=== PATIENT | female | born 1985 | race Caucasian/White ===

== ENCOUNTER 2016-07-01 23:02 | Emergency (ER) | payer SELFPAY ==
[~2016-07-01] VITALS: Ht 157.5 cm; Wt 61.2 kg
[2016-07-01 23:11] VITALS: BP 120/85
--- NOTE | 2016-07-01 23:36 | PHYS DOC ---
Past Medical History Past Medical History: No Pertinent History Past Surgical History: Tubal ligation, Other Additional Past Surgical Histo: PARTIAL HYSTERECTOMY,TUMOR REMOVED FROM VAGINAL WALL Alcohol Use: None Drug Use: None Adult General Chief Complaint Chief Complaint: NAUSEA/VOMITING/DIARRHA HPI HPI Patient is a 31 year old female presents emergency department stating that she' s had a week and half or she's been vomiting with every meal. She states that on the most part she's been keeping fluids down. She denies fever, chills she denies any diarrhea. She states that she has lower abdominal pain and discomfort. She denies urinary frequency urgency pain with urination. She denies any vaginal discharge. Patient states that she's had a partial hysterectomy in the past. Review of Systems Review of Systems Constitutional: Denies fever or chills [] Eyes: Denies change in visual acuity, redness, or eye pain [] HENT: Denies nasal congestion or sore throat [] Respiratory: Denies cough or shortness of breath [] Cardiovascular: No additional information not addressed in HPI [] GI: abdominal pain, nausea, vomiting, denies bloody stools or diarrhea [] : Denies dysuria or hematuria [] Musculoskeletal: Denies back pain or joint pain [] Integument: Denies rash or skin lesions [] Neurologic: Denies headache, focal weakness or sensory changes [] Endocrine: Denies polyuria or polydipsia [] Current Medications Current Medications Current Medications Medications (Trade) Dose Ordered Sig/Messi Start Time Stop Time Status Last Admin Dose Admin Ondansetron HCl (Zofran) 4 mg 1X ONCE 07/02/16 00:00 07/02/16 00:01 Sodium Chloride 1,000 ml @ 1,000 mls/hr 1X ONCE 07/02/16 00:00 07/02/16 00:59 Allergies Allergies Allergies Coded Allergies Type Severity Reaction Last Updated Verified Penicillins Allergy Intermediate SWELLING 07/01/16 Yes Physical Exam Physical Exam Constitutional: Well developed, well nourished, no acute distress, non-toxic appearance. [] HENT: Normocephalic, atraumatic, bilateral external ears normal, oropharynx moist, no oral exudates, nose normal. [] Eyes: PERRLA, EOMI, conjunctiva normal, no discharge. [] Neck: Normal range of motion, no tenderness, supple, no stridor. [] Cardiovascular:Heart rate regular rhythm, no murmur [] Lungs & Thorax: Bilateral breath sounds clear to auscultation [] Abdomen: Bowel sounds hypoactive, soft, no tenderness, no masses, no pulsatile masses. [] Skin: Warm, dry, no erythema, no rash. [] Back: No tenderness Extremities: No tenderness, no cyanosis, no clubbing, ROM intact, no edema. [] Neurologic: Alert and oriented X 3, normal motor function, normal sensory function, no focal deficits noted. [] Psychologic: Affect normal, judgement normal, mood normal. [] Current Patient Data Vital Signs Vital Signs Date Time Temp Pulse Resp B/P (MAP) Pulse Ox O2 Delivery O2 Flow Rate FiO2 07/01/16 23:11 98.1 103 18 100 Room Air 98.1 Lab Values Laboratory Tests Test 07/01/16 22:40 07/01/16 23:10 POC Urine HCG, Qualitative Hcg negative (Negative) Urine Collection Type Unknown Urine Color Yellow Urine Clarity Clear Urine pH 7.0 Urine Specific [place] <=1.005 Urine Protein Negative mg/dL (NEG-TRACE) Urine Glucose (UA) Negative mg/dL (NEG) Urine Ketones (Stick) Negative mg/dL (NEG) Urine Blood Negative (NEG) Urine Nitrite Negative (NEG) Urine Bilirubin Negative (NEG) Urine Urobilinogen Dipstick 0.2 mg/dL (0.2 mg/dL) Urine Leukocyte Esterase Trace (NEG) Urine RBC 0 /HPF (0-2) Urine WBC Occ /HPF (0-4) Urine Squamous Epithelial Cells Few /LPF Urine Bacteria Mod /HPF (0-FEW) EKG EKG [] Radiology/Procedures Radiology/Procedures [] 0230 CT scan reveals no acute abdominal or pelvic abnormality. There is moderate: Stool volume. Sigmoid colon diverticulosis without evidence of diverticulitis. Patient's labs were all within normal limits. Patient's CBC chemistry and UA were unremarkable. Patient's currently resting in bed watching TV in no acute distress. Patient reports that she does feel better. Patient be discharged home with a prescription with ibuprofen and instructed to follow-up with her primary care doctor. I discussed with the patient the issue of diverticulosis and the need to change her diet to high-fiber diet Abdominal exam: Soft nondistended no rebound or guarding. No evidence of a surgical abdomen at this time. Course & Med Decision Making Course & Med Decision Making Pertinent Labs and Imaging studies reviewed. (See chart for details) Patient was moved to Room 23 for further care after [employer] [employer] assessment [address] Ansari, Labs pending at current time with CT scan pending. Urine was positive for trace lueks. [] Dragon Disclaimer Dragon Disclaimer This electronic medical record was generated, in whole or in part, using a voice recognition dictation system. Departure Departure Impression: Primary Impression: Abdominal pain Additional Impression: Diverticulosis Disposition: HOME, SELF-CARE Condition: IMPROVED Referrals: NO PCP (PCP) Patient Instructions: Abdominal Pain (Nonspecific), Diverticulosis Scripts Ibuprofen (IBUPROFEN) 600 Mg Tablet 600 MG PO PRN Q6HRS Y for PAIN, #20 TAB Prov: BRI ANSARI MD 07/02/16 Problem Qualifiers Primary Impression: Abdominal pain Abdominal location: left lower quadrant Qualified Codes: R10.32 - Left lower quadrant pain Additional Impression: Diverticulosis Diverticulosis site: diverticulosis of large intestine Diverticulosis bleeding: diverticulosis without bleeding Qualified Codes: K57.30 - Diverticulosis of large intestine without perforation or abscess without bleeding STUART THOMPSON APRN July 01, 2016 23:35 BRI ANSARI MD July 02, 2016 02:32
[2016-07-01 23:39] LABS: BILIRUBIN,URINE NEGATIVE (NEG); GLUCOSE,URINE NEGATIVE (NEG); NITRITE,URINE NEGATIVE (NEG); PROTEIN,URINE NEGATIVE (NEG-TRACE); UROBILINOGEN,URINE 0.2 mg/dL (0.2 mg/dL)
[2016-07-01 23:45] LABS: BACTERIA,URINE MOD /HPF (0-FEW); RBC,URINE 0 /HPF (0-2); SQUAMOUS EPITHELIAL CELL,UR FEW /LPF; WBC,URINE OCC /HPF (0-4)
[2016-07-02] MEDS ORDERED: ONDANSETRON PF 4 MG/2 ML VIAL. IV ONE
[2016-07-02] MEDS ORDERED: IV NORMAL SALINE 1000ML BAG 1,000 ML IV ONE
[2016-07-02] MEDS ORDERED: IOHEXOL 300 MG/ML 75 ML VIAL IV ONE ×2 (00:45→01:30)
[2016-07-02] MEDS ORDERED: IOHEXOL 240 MG/ML 50ML VIAL. PO ONE (00:45)
[2016-07-02] MEDS ORDERED: IOHEXOL 240 MG/ML 50ML VIAL. IV ONE (01:30)
[2016-07-02 02:05] LABS: ALBUMIN 3.4 g/dL (3.4-5.0); ALBUMIN/GLOBULIN RATIO 0.9 (1.0-1.7); CALCIUM 8.8 mg/dL (8.5-10.1); CREATININE 0.7 mg/dL (0.6-1.0); GFR 98.9; TOTAL BILIRUBIN 0.2 mg/dL (0.2-1.0); TOTAL PROTEIN 7.3 g/dL (6.4-8.2)
[2016-07-02 02:09] LABS: BASO # 0.2 x10^3/uL (0.0-0.2); BASO % 1 % (0-3); EOS % 3 % (0-3); HEMATOCRIT 40.6 % (36.0-47.0); HEMOGLOBIN 13.8 g/dL (12.0-15.5); LYMPH # 3.9 x10^3/uL (1.0-4.8); LYMPH % 36 % (24-48); MEAN CORPUSCULAR HEMOGLOBIN 30 pg (25-35); MEAN CORPUSCULAR HGB CONC 34 g/dL (31-37); MEAN CORPUSCULAR VOLUME 90 fL (79-100); MONO % 8 % (0-9); NEUT % 52 % (31-73); PLATELET COUNT 299 x10^3/uL (140-400); RED BLOOD COUNT 4.53 x10^6/uL (3.50-5.40); RED CELL DISTRIBUTION WIDTH 12.7 % (11.5-14.5); WHITE BLOOD COUNT 10.7 x10^3/uL (4.0-11.0)
[2016-07-02] MEDS ORDERED: IBUP-1007 PO (02:31)
--- NOTE | 2016-07-02 09:41 | RAD ---
PROCEDURE CT abdomen pelvis with contrast. HISTORY Lower abdominal pain and vomiting. TECHNIQUE Helical CT imaging of the abdomen and pelvis performed after oral contrast and 75 cc Omnipaque 300 IV contrast. PQRS: One or more the following individualized dose reduction techniques were utilized for the study: 1. Automated exposure control. 2. Adjustment of the mA and/or kV according to patient size. 3. Use of iterative reconstruction technique. COMPARISON None. FINDINGS The lung bases are clear. Cardiac size normal. Cholecystectomy. The liver, spleen, pancreas, adrenal glands, abdominal aorta, and kidneys are normal. There is right extrarenal pelvis. Stomach unremarkable. No dilated small bowel. The appendix is normal. There is moderate colon stool volume. No colon wall thickening is seen. There is diverticulosis in the sigmoid colon. No abdominal adenopathy or free fluid. The urinary bladder is normal. Uterus atrophic or surgically absent. Left ovary unremarkable. Right ovary not definitely seen. No pelvic free fluid. No acute bone abnormality. IMPRESSION 1. No acute abdominal or pelvic abnormality. 2. Moderate colon stool volume. 3. Sigmoid colon diverticulosis without evidence of diverticulitis. Electronically signed by: Davion Kapoor MD (July 02, 2016 02:02:48)
== END 2016-07-02 02:45 | disposition home or self-care (01) ==
LOC: ER 23:02
DX: R10.32 Left lower quadrant pain (principal); K57.30 Diverticulosis of large intestine without perforation or abscess without bleeding; Z98.51 Tubal ligation status; Z88.0 Allergy status to penicillin
CPT/HCPCS: 36415; 74177; 80053; 81001; 82150; 83690; 84703; 85027; 96361; 96374; 99285; J2405; J7030; Q9967; 81025

== ENCOUNTER 2017-09-25 00:01 | Emergency (ER) | payer SELFPAY | END 2017-09-25 00:40 | disposition home or self-care (01) | LOC: ER 00:01 | DX: K04.7 Periapical abscess without sinus (principal); K02.9 Dental caries, unspecified; Z90.710 Acquired absence of both cervix and uterus; Z98.51 Tubal ligation status; Z98.890 Other specified postprocedural states; Z88.0 Allergy status to penicillin | CPT/HCPCS: 99283 ==

== ENCOUNTER 2020-01-06 12:59 | Emergency (ER) | payer SELFPAY ==
[~2020-01-06] VITALS: Ht 157.5 cm; Wt 77.2 kg
[~2020-01-06 12:59] MED LIST: CLIN300C8 PO; IBUP-1007 PO; TRAM50TA PO
[2020-01-06 13:38] VITALS: BP 127/82
--- NOTE | 2020-01-06 13:49 | PHYS DOC ---
Past Medical History Past Medical History: No Pertinent History Additional Past Medical Histor: PCOS Past Surgical History: Cholecystectomy, Hysterectomy, Other Additional Past Surgical Histo: VAGINAL Smoking Status: Never Smoker Alcohol Use: None Drug Use: None General Adult EDM: Chief Complaint: Congestion HPI: HPI: Patient is a 34 year old female who presents to the ED today complaining of nasal congestion that began yesterday and loss of taste or smell that began today. Patient works at the [employer], she states 2 employees tested positive for COVID-19 and she was instructed to come to the ED to be tested. Denies any fever, Review of Systems: Review of Systems: Constitutional: Denies fever or chills. [] Eyes: Denies change in visual acuity. [] HENT: Reports nasal congestion and loss of taste and smell, denies sore throat. [] Respiratory: Denies cough or shortness of breath. [] Cardiovascular: Denies chest pain or edema. [] GI: Denies abdominal pain, nausea, vomiting, bloody stools or diarrhea. [] : Denies dysuria. [] Musculoskeletal: Denies back pain or joint pain. [] Integument: Denies rash. [] Neurologic: Denies headache, focal weakness or sensory changes. [] Psychiatric: Denies depression or anxiety. [] Heart Score: Risk Factors: Risk Factors: DM, Current or recent (<one month) smoker, HTN, HLP, family history of CAD, obesity. Risk Scores: Score 0 - 3: 2.5% MACE over next 6 weeks - Discharge Home Score 4 - 6: 20.3% MACE over next 6 weeks - Admit for Clinical Observation Score 7 - 10: 72.7% MACE over next 6 weeks - Early Invasive Strategies Allergies: Allergies: Allergies Coded Allergies Type Severity Reaction Last Updated Verified Penicillins Allergy Intermediate SWELLING 07/01/16 Yes Physical Exam: PE: Constitutional: Well developed, well nourished, no acute distress, non-toxic appearance. [] HENT: Normocephalic, atraumatic, bilateral external ears normal, oropharynx moist, no oral exudates, nose normal. [] Eyes: PERRLA, EOMI, conjunctiva normal, no discharge. [] Neck: Normal range of motion, no tenderness, supple, no stridor. [] Cardiovascular:Heart rate regular rhythm, no murmur [] Lungs & Thorax: Bilateral breath sounds clear to auscultation [] Abdomen: Bowel sounds normal, soft, no tenderness, no masses, no pulsatile masses. [] Skin: Warm, dry, no erythema, no rash. [] Back: No tenderness, no CVA tenderness. [] Extremities: No tenderness, no cyanosis, no clubbing, ROM intact, no edema. [] Neurologic: Alert and oriented X 3, normal motor function, normal sensory func tion, no focal deficits noted. [] Psychologic: Affect normal, judgement normal, mood normal. [] Current Patient Data: Vital Signs: Vital Signs Date Time Temp Pulse Resp B/P (MAP) Pulse Ox O2 Delivery O2 Flow Rate FiO2 01/06/20 13:38 99.1 94 20 127/82 (97) 97 Room Air 99.1 EKG: EKG: [] Radiology/Procedures: Radiology/Procedures: [] Course & Med Decision Making: Course & Med Decision Making Pertinent Labs and Imaging studies reviewed. (See chart for details) This is a 34-year-old female patient presenting to the ED today complaining of nasal congestion, loss of taste and smell, symptoms began yesterday. Was sent to the ED for COVID-19 test which was done. Follow-up with PCP. Supportive care measures recommended including the need for good hand hygiene, rest, pushing fluids. Dragon Disclaimer: Dragon Disclaimer: This electronic medical record was generated, in whole or in part, using a voice recognition dictation system. Departure Departure Impression: Primary Impression: Person under investigation for COVID-19 Additional Impression: URI (upper respiratory infection) Qualified Codes: J06.9 - Acute upper respiratory infection, unspecified Disposition: 01 DC HOME SELF CARE/HOMELESS Condition: STABLE Referrals: NO PCP (PCP) follow up in one week with your doctor Patient Instructions: Upper Respiratory Infection, Adult, [id number] Additional Instructions: You were tested for COVID-19, we will call you in the course of next week with results. Quarantine yourself until you hear from us. Maintain good hand hygiene. Push fluids. Wear your mask. MAMTA JOAQUIN APRN Jan 06, 2020 13:49
--- NOTE | 2020-01-08 08:50 | NUR ---
IP: Attempted to call COVID test results. No answer. No means to leave a voicemail.
== END 2020-01-06 13:38 | disposition home or self-care (01) ==
LOC: ER 12:59
DX: U07.1 COVID-19 (principal); J06.9 Acute upper respiratory infection, unspecified
CPT/HCPCS: 99283; C9803; U0003

== ENCOUNTER 2020-06-03 23:37 | Emergency (ER) | payer SELFPAY ==
[~2020-06-03] VITALS: Ht 157.5 cm; Wt 81.1 kg
[~2020-06-03 23:37] MED LIST changes: -CLIN300C8 PO; +CLIN300C9 PO
[2020-06-03 23:45] VITALS: BP 111/78
[2020-06-04 00:36] LABS: BILIRUBIN,URINE NEGATIVE (NEG); CLARITY,URINE CLEAR; COLOR,URINE YELLOW; NITRITE,URINE NEGATIVE (NEG); PH,URINE 6.5 (<5.0-8.0); PROTEIN,URINE NEGATIVE (NEG-TRACE)
[2020-06-04 00:41] LABS: BACTERIA,URINE MODERATE /HPF (0-FEW); RBC,URINE OCC /HPF (0-2); WBC,URINE OCC /HPF (0-4)
--- NOTE | 2020-06-04 00:45 | PHYS DOC ---
Past Medical History Past Medical History: No Pertinent History, Diverticulitis Additional Past Medical Histor: PCOS Past Surgical History: Cholecystectomy, Hysterectomy, Other Additional Past Surgical Histo: VAGINAL Smoking Status: Current Every Day Smoker (1/2 pack per day) Alcohol Use: None Drug Use: None General Adult EDM: Chief Complaint: GI PROBLEM HPI: HPI: Patient is a 35 year old female presents the emergency department with abdominal pain. Patient states that she had pork chop, macaroni and cheese, fried potatoes for dinner and 45 minutes after eating she acutely developed an 8 out of 10 sharp cramping pain in her epigastric region and right upper quadrant of her abdomen. Patient denies radiation of pain to the back. Lying flat exacerbates this pain and patient said that putting pressure on these regions alleviates pain. Deep breaths also exacerbate the pain. Patient did not take any medication to alleviate symptoms. Patient has past medical history significant for diverticulitis and gallstones requiring cholecystectomy, she claims that this pain is very similar to both. Patient had a partial hysterectomy in 2011. Patient denies any fever, chills, nausea, vomiting, diarrhea, constipation. Review of Systems: Review of Systems: Constitutional: Denies fever or chills Eyes: Denies redness or eye pain HENT: Denies nasal congestion or sore throat Respiratory: Denies cough or shortness of breath Cardiovascular: Denies chest pain or palpitations GI: Complains of abdominal pain in the right upper quadrant and epigastric region, denies: diarrhea, nausea, vomiting : Denies dysuria or hematuria Musculoskeletal: Denies back pain or joint pain Integument: Denies rash or skin lesions Neurologic: Denies headache, focal weakness or sensory changes Complete systems were reviewed and found to be within normal limits, except as documented in this note. Heart Score: C/O Chest Pain: N/A Family History: Family History: No relevant family history Current Medications: Current Medications Medications (Trade) Dose Ordered Sig/Messi Start Time Stop Time Status Last Admin Dose Admin Famotidine (Pepcid Vial) 20 mg 1X ONCE 06/04/20 00:30 06/04/20 00:31 UNV Ketorolac Tromethamine (Toradol 15mg Vial) 15 mg 1X ONCE 06/04/20 00:30 06/04/20 00:31 UNV Ondansetron HCl (Zofran) 4 mg 1X ONCE 06/04/20 00:30 06/04/20 00:31 UNV Sodium Chloride 1,000 ml @ 1,000 mls/hr Q1H 06/04/20 00:30 06/04/20 01:29 UNV Allergies: Allergies: Allergies Coded Allergies Type Severity Reaction Last Updated Verified Penicillins Allergy Intermediate SWELLING 07/01/16 Yes Physical Exam: PE: Constitutional: Well developed, well nourished, patient is in obvious pain- curled up in position HENT: Normocephalic, atraumatic Eyes: PERRL, EOMI, conjunctiva normal, no discharge Neck: Normal range of motion, no tenderness, supple Lungs & Thorax: No respiratory distress, equal chest rise and fall Abdomen: Pain to palpation in epigastric region and right upper quadrant region, no rebound, negative McBurney's Skin: Warm, dry, no erythema, no rash Back: No tenderness, no CVA tenderness Extremities: No tenderness, ROM intact, no edema Neurologic: Alert and oriented X 3, normal motor function, normal sensory function, no focal deficits noted Psychologic: Affect normal, judgment normal Current Patient Data: Labs: Laboratory Tests Test 06/04/20 00:06 POC Urine HCG, Qualitative Hcg negative (Negative) Vital Signs: Vital Signs Date Time Temp Pulse Resp B/P (MAP) Pulse Ox O2 Delivery O2 Flow Rate FiO2 06/03/20 23:45 97.5 86 20 111/78 (89) 98 Room Air 97.5 EKG: EKG: [] Radiology/Procedures: Radiology/Procedures: PROCEDURE: CT ABD PELV W/ IV CONTRST ONLY CT SCAN OF THE ABDOMEN AND PELVIS WITH IV CONTRAST. History: Reason: upper abdominal pain / Spl. Instructions: / History: Comparison:July 02, 2016. Procedure: Contiguous axial images of the abdomen and pelvis were performed after the administration of 75 cc of Isovue 370 IV contrast. Oral contrast: No. Findings: There has been prior cholecystectomy. The appendix is normal. The uterus is not well seen and could be small or surgically removed. There is a 3.1 cm cyst in the right adnexa which was not seen previously. There is mild distention of multiple loops of large and small bowel. Liver: Unremarkable Spleen: Unremarkable Pancreas: Unremarkable Adrenal Glands: Unremarkable Kidneys: Mild prominence the renal pelvises was seen previously is likely extrarenal pelvis There is no mass or lymphadenopathy. There is no free air. There is no free fluid. The urinary bladder appears normal. Impression: 1. Mild ileus. 2. Right adnexal cyst is likely of ovarian origin. This is small likely benign. Recommend a 2-3 month follow-up ultrasound of the pelvis. End impression PQRS Compliance Statement: One or more of the following individualized dose reduction techniques were utilized for this examination: 1. Automated exposure control 2. Adjustment of the mA and/or kV according to patient size 3. Use of iterative reconstruction technique Electronically signed by: Griffin Beebe III, MD (06/04/2020 2:13 AM) [facility] Course & Med Decision Making: Course & Med Decision Making 35-year-old female presents the emergency department for abdominal pain. Patient had pork chops, macaroni cheese, fried potatoes in the evening and 45 minutes later had 8 out of 10 sharp constant epigastric and right upper quadrant abdominal pain. She denies fever, nausea, vomiting, chills, diarrhea, constipation. Patient has past medical history of gallstones and diverti culitis, with past surgical history of partial hysterectomy and cholecystectomy. Labs were drawn, medications for pain and nausea given, Pepcid given. CT of abdomen and pelvis performed Dragon Disclaimer: DragRibbon Disclaimer: This electronic medical record was generated, in whole or in part, using a voice recognition dictation system. Departure Departure Impression: Primary Impression: Abdominal pain Qualified Codes: R10.13 - Epigastric pain Additional Impressions: Ileus Nausea Disposition: 01 HOME / SELF CARE / HOMELESS Condition: STABLE Referrals: NO PCP (PCP) SOUMYA SPRINGER MD Patient Instructions: Abdominal Pain (Nonspecific), Clear Liquid Diet, [id number], Ileus, Nausea, Adult, [id number] Additional Instructions: Increase fluid hydration. Keep diet bland after tolerating a clear liquid diet. Scripts Hyoscyamine Sulfate (LEVSIN-SL) 0.125 Mg Tab.subl 0.125 MG SL Q4-6HRS PRN for PAIN, #14 TAB Prov: MANOHAR DOTY DO 06/04/20 Famotidine (PEPCID) 20 Mg Tablet 20 MG PO BID, #14 TAB Prov: MANOHAR DOTY DO 06/04/20 Ondansetron (ONDANSETRON ODT) 4 Mg Tab.rapdis 1 TAB PO PRN Q6-8HRS PRN for NAUSEA, #16 TAB Prov: MANOHAR DOTY DO 06/04/20 MANOHAR DOTY DO Jun 04, 2020 00:44
[2020-06-04] MEDS ORDERED: IV NORMAL SALINE 1000ML BAG 1,000 ML IV SCH (01:00)
[2020-06-04] MEDS ORDERED: FAMOTIDINE 20 MG/2 ML VIAL IVP ONE (01:00)
[2020-06-04] MEDS ORDERED: KETOROLAC 15 MG/ML VIAL. IVP ONE (01:00)
[2020-06-04] MEDS ORDERED: ONDANSETRON PF 4 MG/2 ML VIAL. IVP ONE (01:00)
[2020-06-04 01:19] LABS: BASO # 0.1 x10^3/uL (0.0-0.2); BASO % 1 % (0-3); EOS # 0.2 x10^3/uL (0.0-0.7); EOS % 2 % (0-3); HEMATOCRIT 41.4 % (36.0-47.0); HEMOGLOBIN 14.3 g/dL (12.0-15.5); LYMPH # 3.2 x10^3/uL (1.0-4.8); LYMPH % 30 % (24-48); MEAN CORPUSCULAR HEMOGLOBIN 31 pg (25-35); MEAN CORPUSCULAR HGB CONC 35 g/dL (31-37); MEAN CORPUSCULAR VOLUME 91 fL (79-100); MONO # 0.7 x10^3/uL (0.0-1.1); MONO % 7 % (0-9); NEUT # 6.5 x10^3/uL (1.8-7.7); NEUT % 60 % (31-73); PLATELET COUNT 274 x10^3/uL (140-400); RED BLOOD COUNT 4.56 x10^6/uL (3.50-5.40); RED CELL DISTRIBUTION WIDTH 12.4 % (11.5-14.5); WHITE BLOOD COUNT 10.8 x10^3/uL (4.0-11.0)
[2020-06-04 01:33] LABS: CALCIUM 8.9 mg/dL (8.5-10.1); CREATININE 0.8 mg/dL (0.6-1.0); GFR 82.6; POTASSIUM 3.8 mmol/L (3.5-5.1)
[2020-06-04 01:37] LABS: ALBUMIN 3.7 g/dL (3.4-5.0); MAGNESIUM 1.9 mg/dL (1.8-2.4); TOTAL BILIRUBIN 0.2 mg/dL (0.2-1.0); TOTAL PROTEIN 7.5 g/dL (6.4-8.2)
[2020-06-04] MEDS ORDERED: CONTRAST GIVEN. MC PRN (02:00)
[2020-06-04] MEDS ORDERED: IOHEXOL 300 MG/ML 100ML VIAL. IV ONE (02:00)
--- NOTE | 2020-06-04 02:15 | RAD ---
CT SCAN OF THE ABDOMEN AND PELVIS WITH IV CONTRAST. History: Reason: upper abdominal pain / Spl. Instructions: / History: Comparison:July 02, 2016. Procedure: Contiguous axial images of the abdomen and pelvis were performed after the administration of 75 cc o f Isovue 370 IV contrast. Oral contrast: No. Findings: There has been prior cholecystectomy. The appendix is normal. The uterus is not well seen and could b e small or surgically removed. There is a 3.1 cm cyst in the right adnexa which was not seen previous ly. There is mild distention of multiple loops of large and small bowel. Liver: Unremarkable Spleen: Unremarkable Pancreas: Unremarkable Adrenal Glands: Unremarkable Kidneys: Mild prominence the renal pelvises was seen previously is likely extrarenal pelvis There is no mass or lymphadenopathy. There is no free air. There is no free fluid. The urinary bladder appears normal. Impression: 1. Mild ileus. 2. Right adnexal cyst is likely of ovarian origin. This is small likely benign. Recommend a 2-3 month follow-up ultrasound of the pelvis. End impression PQRS Compliance Statement: One or more of the following individualized dose reduction techniques were utilized for this examinat ion: 1. Automated exposure control 2. Adjustment of the mA and/or kV according to patient size 3. Use of iterative reconstruction technique Electronically signed by: Griffin Beebe III, MD (06/04/2020 2:13 AM) [facility]
[2020-06-04] MEDS ORDERED: HYOS0.1265 SL (03:28)
[2020-06-04] MEDS ORDERED: FAMO-63 PO (03:28)
[2020-06-04] MEDS ORDERED: ONDA4TAB12 PO (03:28)
[2020-06-04] MEDS ORDERED: fentaNYL PF VIAL 100 MCG/2 ML VIAL IV ONE (03:30)
== END 2020-06-04 04:06 | disposition home or self-care (01) ==
LOC: ER 23:37
DX: K56.7 Ileus, unspecified (principal); R10.13 Epigastric pain; R11.0 Nausea; F17.200 Nicotine dependence, unspecified, uncomplicated; Z90.49 Acquired absence of other specified parts of digestive tract; Z90.710 Acquired absence of both cervix and uterus; Z98.890 Other specified postprocedural states; Z88.0 Allergy status to penicillin
CPT/HCPCS: 36415; 74177; 80053; 81001; 81025; 83690; 83735; 85025; 87086; 96361; 96374; 96375; 99285; J1885; J2405; J3010; J3490; J7030; Q9967

== ENCOUNTER 2020-06-21 19:51 | Emergency (ER) | payer SELFPAY ==
[~2020-06-21] VITALS: Ht 157.5 cm; Wt 82.0 kg
[~2020-06-21 19:51] MED LIST changes: +FAMO-63 PO; +HYOS0.1265 SL; +ONDA4TAB12 PO
[2020-06-21 20:12] LABS: BILIRUBIN,URINE NEGATIVE (NEG); CLARITY,URINE CLEAR; COLOR,URINE YELLOW; NITRITE,URINE POSITIVE (NEG); PROTEIN,URINE NEGATIVE (NEG-TRACE); UROBILINOGEN,URINE 0.2 mg/dL (0.2 mg/dL)
[2020-06-21] MEDS ORDERED: ONDANSETRON PF 4 MG/2 ML VIAL. IVP ONE (20:15)
[2020-06-21] MEDS ORDERED: IV NORMAL SALINE 1000ML BAG 1,000 ML IV ONE (20:15)
[2020-06-21] MEDS ORDERED: MECLIZINE HCL 12.5 MG TABLET. PO ONE (20:15)
[2020-06-21] MEDS ORDERED: fentaNYL PF VIAL 100 MCG/2 ML VIAL IVP ONE (20:15)
[2020-06-21 20:25] LABS: BACTERIA,URINE MANY /HPF (0-FEW)
[2020-06-21 20:26] LABS: RBC,URINE 0 /HPF (0-2)
[2020-06-21 20:37] LABS: BASO # 0.1 x10^3/uL (0.0-0.2); BASO % 1 % (0-3); EOS # 0.3 x10^3/uL (0.0-0.7); EOS % 3 % (0-3); HEMATOCRIT 39.9 % (36.0-47.0); HEMOGLOBIN 13.6 g/dL (12.0-15.5); LYMPH % 36 % (24-48); MEAN CORPUSCULAR HEMOGLOBIN 31 pg (25-35); MEAN CORPUSCULAR HGB CONC 34 g/dL (31-37); MEAN CORPUSCULAR VOLUME 90 fL (79-100); MONO # 0.6 x10^3/uL (0.0-1.1); MONO % 6 % (0-9); NEUT % 54 % (31-73); PLATELET COUNT 261 x10^3/uL (140-400); RED BLOOD COUNT 4.43 x10^6/uL (3.50-5.40); RED CELL DISTRIBUTION WIDTH 12.8 % (11.5-14.5); WHITE BLOOD COUNT 11.1 x10^3/uL (4.0-11.0)
[2020-06-21 20:45] LABS: CALCIUM 8.5 mg/dL (8.5-10.1); CREATININE 0.9 mg/dL (0.6-1.0); GFR 72.1; POTASSIUM 3.8 mmol/L (3.5-5.1); PROTHROMBIN TIME PATIENT 12.9 SEC (11.7-14.0)
[2020-06-21 20:51] LABS: ALBUMIN 3.9 g/dL (3.4-5.0); ALBUMIN/GLOBULIN RATIO 1.2 (1.0-1.7); TOTAL BILIRUBIN 0.3 mg/dL (0.2-1.0); TOTAL PROTEIN 7.1 g/dL (6.4-8.2)
[2020-06-21] MEDS ORDERED: CIPROFLOXACIN 400MG PREMIX 200 ML IV ONE (21:00)
--- NOTE | 2020-06-21 21:17 | PHYS DOC ---
Past Medical History Past Medical History: Diverticulitis Additional Past Medical Histor: PCOS, Ileus Past Surgical History: Cholecystectomy, Hysterectomy, Other Additional Past Surgical Histo: VAGINAL Smoking Status: Current Every Day Smoker Alcohol Use: None Drug Use: None General Adult EDM: Chief Complaint: DIZZY/LIGHT HEADED HPI: HPI: Patient is a 35 year old female who presents with dizziness, headache behind her eyes, nausea and states that her fingers are turning purple. Patient rates her pain a 7 out of 10 and states she has a throbbing headache. She states she had a headache earlier took Tylenol and got better. She states it did came back but she was eating dinner tonight. She states she has been eating and drinking appropriately. She has not vomited. On June 04 she was diagnosed with a mild ileus. Patient has a history of mild ileus, cholecystectomy, diverticulitis, PCOS, smoker, hysterectomy. Patient denies chest pain, shortness of air, syncope, abdominal pain, fever, urinary symptoms, back pain, focal weakness, numbness or tingling. Review of Systems: Review of Systems: Constitutional: Denies fever or chills. [] Eyes: Denies change in visual acuity. [] HENT: Denies nasal congestion or sore throat. [] Respiratory: Denies cough or shortness of breath. [] Cardiovascular: Denies chest pain or edema. [] GI: Denies abdominal pain, +nausea, denies vomiting, bloody stools or diarrhea. [] : Denies dysuria. [] Musculoskeletal: Denies back pain or joint pain. [] Integument: Denies rash. +Hands turning purple [] Neurologic: Denies headache, focal weakness or sensory changes. + Dizziness with moving head [] Endocrine: Denies polyuria or polydipsia. [] Lymphatic: Denies swollen glands. [] Psychiatric: Denies depression or anxiety. [] Heart Score: C/O Chest Pain: No Risk Factors: Risk Factors: DM, Current or recent (<one month) smoker, HTN, HLP, family history of CAD, obesity. Risk Scores: Score 0 - 3: 2.5% MACE over next 6 weeks - Discharge Home Score 4 - 6: 20.3% MACE over next 6 weeks - Admit for Clinical Observation Score 7 - 10: 72.7% MACE over next 6 weeks - Early Invasive Strategies Current Medications: Current Medications Medications (Trade) Dose Ordered Sig/Messi Start Time Stop Time Status Last Admin Dose Admin Ciprofloxacin/ Dextrose 200 ml @ 200 mls/hr 1X ONCE 06/21/20 21:00 06/21/20 21:59 Fentanyl Citrate (Fentanyl 2ml Vial) 25 mcg 1X ONCE 06/21/20 20:15 06/21/20 20:19 DC 06/21/20 20:46 25 MCG Meclizine HCl (Antivert) 25 mg 1X ONCE 06/21/20 20:15 06/21/20 20:19 DC 06/21/20 20:46 25 MG Ondansetron HCl (Zofran) 4 mg 1X ONCE 06/21/20 20:15 06/21/20 20:19 DC 06/21/20 20:45 4 MG Sodium Chloride 1,000 ml @ 1,000 mls/hr 1X ONCE 06/21/20 20:15 06/21/20 21:14 06/21/20 20:47 1,000 MLS/HR Allergies: Allergies: Allergies Coded Allergies Type Severity Reaction Last Updated Verified Penicillins Allergy Intermediate SWELLING 07/01/16 Yes Physical Exam: PE: Constitutional: Well developed, well nourished, no acute distress, non-toxic appearance. [] HENT: Normocephalic, atraumatic, bilateral external ears normal, oropharynx moist, no oral exudates, nose normal. [] Eyes: PERRLA, EOMI, conjunctiva normal, no discharge. Nystagmus. [] Neck: Normal range of motion, no tenderness, supple, no stridor. [] Cardiovascular:Heart rate regular rhythm, no murmur [] Lungs & Thorax: Bilateral breath sounds clear to auscultation [] Abdomen: Bowel sounds normal, soft, no tenderness, no masses, no pulsatile masses. [] Skin: Warm, dry, no erythema, no rash. [] Back: No tenderness, no CVA tenderness. [] Extremities: No tenderness, no cyanosis, no clubbing, ROM intact, no edema. [] Neurologic: Alert and oriented X 3, normal motor function, normal sensory function, no focal deficits noted. [] Psychologic: Affect normal, judgement normal, mood normal. [] Current Patient Data: Labs: Laboratory Tests Test 06/21/20 19:55 06/21/20 19:58 06/21/20 20:27 Urine Collection Type Void Urine Color Yellow Urine Clarity Clear Urine pH 6.0 (<5.0-8.0) Urine Specific [place] 1.015 (1.000-1.030) Urine Protein Negative mg/dL (NEG-TRACE) Urine Glucose (UA) Negative mg/dL (NEG) Urine Ketones (Stick) Negative mg/dL (NEG) Urine Blood Negative (NEG) Urine Nitrite Positive (NEG) Urine Bilirubin Negative (NEG) Urine Urobilinogen Dipstick 0.2 mg/dL (0.2 mg/dL) Urine Leukocyte Esterase Negative (NEG) Urine RBC 0 /HPF (0-2) Urine WBC 5-10 /HPF (0-4) Urine Squamous Epithelial Cells Few /LPF Urine Bacteria Many /HPF (0-FEW) Urine Mucus Slight /LPF POC Urine HCG, Qualitative Hcg negative (Negative) White Blood Count 11.1 x10^3/uL (4.0-11.0) H Red Blood Count 4.43 x10^6/uL (3.50-5.40) Hemoglobin 13.6 g/dL (12.0-15.5) Hematocrit 39.9 % (36.0-47.0) Mean Corpuscular Volume 90 fL (79-100) Mean Corpuscular Hemoglobin 31 pg (25-35) Mean Corpuscular Hemoglobin Concent 34 g/dL (31-37) Red Cell Distribution Width 12.8 % (11.5-14.5) Platelet Count 261 x10^3/uL (140-400) Neutrophils (%) (Auto) 54 % (31-73) Lymphocytes (%) (Auto) 36 % (24-48) Monocytes (%) (Auto) 6 % (0-9) Eosinophils (%) (Auto) 3 % (0-3) Basophils (%) (Auto) 1 % (0-3) Neutrophils # (Auto) 6.0 x10^3/uL (1.8-7.7) Lymphocytes # (Auto) 4.0 x10^3/uL (1.0-4.8) Monocytes # (Auto) 0.6 x10^3/uL (0.0-1.1) Eosinophils # (Auto) 0.3 x10^3/uL (0.0-0.7) Basophils # (Auto) 0.1 x10^3/uL (0.0-0.2) Prothrombin Time 12.9 SEC (11.7-14.0) Prothrombin Time INR 1.0 (0.8-1.1) Sodium Level 142 mmol/L (136-145) Potassium Level 3.8 mmol/L (3.5-5.1) Chloride Level 107 mmol/L (98-107) Carbon Dioxide Level 24 mmol/L (21-32) Anion Gap 11 (6-14) Blood Urea Nitrogen 11 mg/dL (7-20) Creatinine 0.9 mg/dL (0.6-1.0) Estimated GFR (Cockcroft-Gault) 72.1 BUN/Creatinine Ratio 12 (6-20) Glucose Level 130 mg/dL (70-99) H Calcium Level 8.5 mg/dL (8.5-10.1) Total Bilirubin 0.3 mg/dL (0.2-1.0) Aspartate Amino Transferase (AST) 20 U/L (15-37) Alanine Aminotransferase (ALT) 27 U/L (14-59) Alkaline Phosphatase 128 U/L (46-116) H Troponin I Quantitative < 0.017 ng/mL (0.000-0.055) Total Protein 7.1 g/dL (6.4-8.2) Albumin 3.9 g/dL (3.4-5.0) Albumin/Globulin Ratio 1.2 (1.0-1.7) Laboratory Tests 06/21/20 20:27 Laboratory Tests 06/21/20 20:27 Vital Signs: Vital Signs Date Time Temp Pulse Resp B/P (MAP) Pulse Ox O2 Delivery O2 Flow Rate FiO2 06/21/20 20:46 18 98 06/21/20 20:00 97.9 100 121/79 (93) Room Air 97.9 EKG: EK and read by Dr. Hussein as sinus rhythm and no STEMI Radiology/Procedures: Radiology/Procedures: [] Impression: [facility] [address] [place] [address] IMAGING REPORT Signed PATIENT: AYESHA ABEBE ACCOUNT: [id number] : 1985 LOCATION: ER AGE: 35 SEX: F EXAM STATUS: REG ER ORD. PHYSICIAN: STUART HOLLEY APRN REASON: NAUSEA, RECENT ILEUS PROCEDURE: ACUTE ABDOMEN SERIES Exam: Acute abdominal series INDICATION: Nausea, recent ileus TECHNIQUE: Frontal view of the chest with upright and supine views the abdomen Comparisons: None FINDINGS: The cardiomediastinal silhouette and pulmonary vessels are within normal limits. The lung and pleural spaces are clear. Air and stool are noted throughout the colon to level the rectum nonobstructive bowel gas pattern. Large amount stool noted in the descending colon. No suspicious masses or calcific patient. Visualized osseous structures are unremarkable. IMPRESSION: 1. No acute cardiopulmonary process. 2. Nonobstructive bowel gas pattern. Large amount stool in the colon Electronically signed by: Anthony Ayoub MD (06/21/2020 9:46 PM) [facility] DICTATED and SIGNED BY: ANTHONY AYOUB MD DATE: 06/21/20 [id number] 0 [facility] [address] [place] [address] IMAGING REPORT Signed PATIENT: AYESHA ABEBE ACCOUNT: [id number] : 1985 LOCATION: ER AGE: 35 SEX: F EXAM STATUS: REG ER ORD. PHYSICIAN: STUART HOLLEY APRN REASON: HEADACHE, DIZZINESS PROCEDURE: CT HEAD WO CONTRAST Exam: CT head INDICATION: Headache, dizziness TECHNIQUE: Sequential axial images through the head were obtained without the administration of IV contrast. Exposure: One or more of the following in the visualized dose reduction techniques were utilized for this examination: 1. Automated exposure control 2. Adjustment of the MA and/or KV according to patient size 3. Use of iterative of reconstructive technique Comparisons: None FINDINGS: No focal parenchymal lesion or hemorrhage is identified. There is no midline shift or sulcal effacement. No acute vascular territory infarction is identified. Hernandez-white distinction is preserved. The ventricular system is within normal limits without compression hydrocephalus. The basal cisterns are well maintained. The visualized portions of the paranasal sinuses and mastoid air cells are well- pneumatized. No acute fractures. IMPRESSION: No acute intracranial abnormality. Electronically signed by: Anthony Ayoub MD (06/21/2020 9:23 PM) [facility] DICTATED and SIGNED BY: ANTHONY AYOUB MD DATE: 06/21/[id number] 0 Course & Med Decision Making: Course & Med Decision Making Pertinent Labs and Imaging studies reviewed. (See chart for details) See HPI. Alert and oriented x4. Ambulatory with a steady gait. Abdomen is soft and nontender. Slight nystagmus seen. Patient states when she moves her head she is dizzy or if she is up and moving she is dizzy but otherwise she is not. Urinalysis shows a positive nitrite urinary tract infection. EKG shows normal sinus rhythm and read by Dr. Hussein. Skin is pink warm and dry. Vital signs within normal limits. Patient's hands are not purple and they are normal skin tone and color. Cap refill is less than 2 seconds. The O2 monitor is picking up on her fingers. No swelling to any of her extremities. Patient is given ciprofloxacin and saline bolus in the ED. [] Dragon Disclaimer: Dragon Disclaimer: This electronic medical record was generated, in whole or in part, using a voice recognition dictation system. NIHSS Stroke Scale NIH Stroke Scale: NIH Stroke Scale Response (Comments) Value Level of Consciousness: 0 Alert/Responsive 0 LOC Questions: 0 Answers both correctly 0 LOC Commands: 0 Performs both tasks 0 Best Gaze: 0 Normal 0 Visual: 0 No visual loss 0 Facial Palsy: 0 Normal, symmetrical 0 Motor - Left Arm 0 No drift 0 Motor - Right Arm 0 No drift 0 Motor - Left Leg 0 No drift 0 Motor: Right Leg 0 No drift 0 Limb Ataxia: 0 Absent 0 Sensory: 0 No loss 0 Best Language: 0 Normal 0 Dysathria: 0 Normal 0 Extinction and Inattention: 0 Normal 0 Total 0 Departure Departure Impression: Primary Impression: Urinary tract infection Qualified Codes: N39.0 - Urinary tract infection, site not specified Additional Impression: Vertigo Disposition: HOME / SELF CARE / HOMELESS Condition: STABLE Referrals: NO PCP (PCP) Patient Instructions: Urinary Tract Infection, Vertigo Additional Instructions: Follow-up with primary care provider soon as possible. Drink plenty of fluids. Take all medications as prescribed and with food. If anything worsens return to the emergency room. Scripts Meclizine Hcl (MECLIZINE HCL) 12.5 Mg Tablet 1 TAB PO TID for 10 Days, #30 TAB 3 Refills Prov: STUART HOLLEY APRN 06/21/20 Nitrofurantoin Monohyd/M-Cryst (MACROBID 100 MG CAPSULE) 100 Mg Capsule 1 CAP PO BID for 10 Days, #20 CAP 0 Refills Prov: STUART HOLLEY APRN 06/21/20 STUART HOLLEY APRN Jun 21, 2020 21:17
--- NOTE | 2020-06-21 21:25 | RAD ---
Exam: CT head INDICATION: Headache, dizziness TECHNIQUE: Sequential axial images through the head were obtained without the administration of IV co ntrast. Exposure: One or more of the following in the visualized dose reduction techniques were utilized for this examination: 1. Automated exposure control 2. Adjustment of the MA and/or KV according to patient size 3. Use of iterative of reconstructive technique Comparisons: None FINDINGS: No focal parenchymal lesion or hemorrhage is identified. There is no midline shift or sulcal effaceme nt. No acute vascular territory infarction is identified. Hernandez-white distinction is preserved. The ventricular system is within normal limits without compression hydrocephalus. The basal cisterns are well maintained. The visualized portions of the paranasal sinuses and mastoid air cells are well-pneumatized. No acute fractures. IMPRESSION: No acute intracranial abnormality. Electronically signed by: Anthony Burrows MD (06/21/2020 9:23 PM) [facility]
[2020-06-21 21:33] VITALS: BP 108/53
--- NOTE | 2020-06-21 21:49 | RAD ---
Exam: Acute abdominal series INDICATION: Nausea, recent ileus TECHNIQUE: Frontal view of the chest with upright and supine views the abdomen Comparisons: None FINDINGS: The cardiomediastinal silhouette and pulmonary vessels are within normal limits. The lung and pleural spaces are clear. Air and stool are noted throughout the colon to level the rectum nonobstructive bowel gas pattern. La rge amount stool noted in the descending colon. No suspicious masses or calcific patient. Visualized osseous structures are unremarkable. IMPRESSION: 1. No acute cardiopulmonary process. 2. Nonobstructive bowel gas pattern. Large amount stool in the colon Electronically signed by: Anthony Burrows MD (06/21/2020 9:46 PM) [facility]
[2020-06-21] MEDS ORDERED: NITR100C62 PO (21:55)
[2020-06-21] MEDS ORDERED: MECL12.582 PO (21:55)
== END 2020-06-21 23:40 | disposition home or self-care (01) ==
LOC: ER 19:51
DX: N39.0 Urinary tract infection, site not specified (principal); F17.200 Nicotine dependence, unspecified, uncomplicated; Z90.49 Acquired absence of other specified parts of digestive tract; Z90.710 Acquired absence of both cervix and uterus; Z88.0 Allergy status to penicillin
CPT/HCPCS: 36415; 70450; 74022; 80053; 81001; 81025; 84484; 85025; 85610; 87086; 96361; 96365; 96375; 99285; J0744; J2405; J3010; J7030; J8597

== ENCOUNTER 2021-02-02 16:59 | Emergency (ER) | payer SELFPAY ==
[~2021-02-02] VITALS: Ht 157.5 cm; Wt 82.5 kg
[~2021-02-02 16:59] MED LIST changes: +CLIN-94 PO; -CLIN300C9 PO; +MECL12.582 PO; +NITR100C62 PO
[2021-02-02] MEDS ORDERED: IV NORMAL SALINE 1000ML BAG 1,000 ML IV ONE (17:45)
[2021-02-02 17:52] LABS: BILIRUBIN,URINE NEGATIVE (NEG); CLARITY,URINE CLEAR; COLOR,URINE YELLOW; NITRITE,URINE NEGATIVE (NEG); PROTEIN,URINE NEGATIVE (NEG-TRACE)
--- NOTE | 2021-02-02 17:56 | PHYS DOC ---
Past Medical History Past Medical History: Constipation, Ovarian Cyst Additional Past Medical Histor: PCOS, Ileus Past Surgical History: Cholecystectomy, Hysterectomy, Other Additional Past Surgical Histo: VAGINAL tumor removal Smoking Status: Current Every Day Smoker Alcohol Use: None Drug Use: None General Adult EDM: Chief Complaint: ABDOMINAL PAIN HPI: HPI: Patient is a 35 year old female who presents with abdominal pain that began 3 days ago. She states her pain is 8/10 left-sided, and radiates to her back. Patient reports associated nausea but denies emesis, diarrhea, bloody stool. She reports one isolated episode of dysuria last week. Patient denies fever, chills, hematuria. She has not passed a bowel movement since her pain started. Patient reports a history of diverticulosis. Review of Systems: Review of Systems: Constitutional: See HPI Eyes: Denies change in visual acuity. HENT: Denies nasal congestion or sore throat. Respiratory: Denies cough or shortness of breath. Cardiovascular: Denies chest pain or edema. GI: See HPI : See HPI Musculoskeletal: Denies back pain or joint pain. Integument: Denies rash or other skin lesions. Neurologic: Denies headache, focal weakness or sensory changes. Heart Score: C/O Chest Pain: No Current Medications: Current Medications Medications (Trade) Dose Ordered Sig/Messi Start Time Stop Time Status Last Admin Dose Admin Ketorolac Tromethamine (Toradol 15mg Vial) 15 mg 1X ONCE 02/02/21 18:15 02/02/21 18:16 Ondansetron HCl (Zofran) 4 mg 1X ONCE 02/02/21 18:15 02/02/21 18:16 Sodium Chloride 1,000 ml @ 1,000 mls/hr 1X ONCE 02/02/21 17:45 02/02/21 18:44 Allergies: Allergies: Allergies Coded Allergies Type Severity Reaction Last Updated Verified Penicillins Allergy Intermediate SWELLING 07/01/16 Yes Physical Exam: PE: Constitutional: Well developed, well nourished, no acute distress, non-toxic appearance. Cardiovascular: Heart rate regular rhythm, no murmur. Lungs & Thorax: Bilateral breath sounds clear to auscultation. Abdomen: Bowel sounds hypoactive, LLQ tenderness without rebound, voluntary guarding, no masses, no pulsatile masses. Skin: Warm, dry, no erythema, no rash. Back: No step-offs, no midline tenderness, no paraspinal tenderness, no CVA tenderness. Extremities: No tenderness, no cyanosis, no clubbing, ROM intact, no edema. Neurologic: Alert and oriented x4, no focal deficits noted. Current Patient Data: Labs: Laboratory Tests Test 02/02/21 17:45 02/02/21 18:10 02/02/21 18:55 Urine Collection Type Unknown Urine Color Yellow Urine Clarity Clear Urine pH 5.0 (<5.0-8.0) Urine Specific [facility] >=1.030 (1.000-1.030) Urine Protein Negative mg/dL (NEG-TRACE) Urine Glucose (UA) Negative mg/dL (NEG) Urine Ketones (Stick) Negative mg/dL (NEG) Urine Blood Negative (NEG) Urine Nitrite Negative (NEG) Urine Bilirubin Negative (NEG) Urine Urobilinogen Dipstick 1.0 mg/dL (0.2 mg/dL) Urine Leukocyte Esterase Negative (NEG) Urine RBC Occ /HPF (0-2) Urine WBC Occ /HPF (0-4) Urine Squamous Epithelial Cells Mod /LPF Urine Bacteria Few /HPF (0-FEW) Urine Mucus Mod /LPF Sodium Level 139 mmol/L (136-145) Potassium Level 3.8 mmol/L (3.5-5.1) Chloride Level 105 mmol/L (98-107) Carbon Dioxide Level 26 mmol/L (21-32) Anion Gap 8 (6-14) Blood Urea Nitrogen 16 mg/dL (7-20) Creatinine 0.7 mg/dL (0.6-1.0) Estimated GFR (Cockcroft-Gault) 96.4 BUN/Creatinine Ratio 23 (6-20) Glucose Level 98 mg/dL (70-99) Calcium Level 8.9 mg/dL (8.5-10.1) Total Bilirubin 0.2 mg/dL (0.2-1.0) Aspartate Amino Transf (AST/SGOT) 17 U/L (15-37) Alanine Aminotransferase (ALT/SGPT) 34 U/L (14-59) Alkaline Phosphatase 126 U/L (46-116) Total Protein 7.2 g/dL (6.4-8.2) Albumin 3.7 g/dL (3.4-5.0) Albumin/Globulin Ratio 1.1 (1.0-1.7) Lipase 122 U/L (73-393) White Blood Count 10.2 x10^3/uL (4.0-11.0) Red Blood Count 4.61 x10^6/uL (3.50-5.40) Hemoglobin 14.6 g/dL (12.0-15.5) Hematocrit 41.4 % (36.0-47.0) Mean Corpuscular Volume 90 fL (79-100) Mean Corpuscular Hemoglobin 32 pg (25-35) Mean Corpuscular Hemoglobin Concent 35 g/dL (31-37) Red Cell Distribution Width 12.6 % (11.5-14.5) Platelet Count 234 x10^3/uL (140-400) Neutrophils (%) (Auto) 51 % (31-73) Lymphocytes (%) (Auto) 38 % (24-48) Monocytes (%) (Auto) 7 % (0-9) Eosinophils (%) (Auto) 3 % (0-3) Basophils (%) (Auto) 1 % (0-3) Neutrophils # (Auto) 5.2 x10^3/uL (1.8-7.7) Lymphocytes # (Auto) 3.9 x10^3/uL (1.0-4.8) Monocytes # (Auto) 0.8 x10^3/uL (0.0-1.1) Eosinophils # (Auto) 0.3 x10^3/uL (0.0-0.7) Basophils # (Auto) 0.1 x10^3/uL (0.0-0.2) Vital Signs: Vital Signs Date Time Temp Pulse Resp B/P (MAP) Pulse Ox O2 Delivery O2 Flow Rate FiO2 02/02/21 19:17 88 182/120 (140) 99 Room Air 02/02/21 19:06 99 111/67 (82) 97 Room Air 02/02/21 17:40 97.7 98 16 144/69 (94) 99 Room Air 97.7 Radiology/Procedures: Radiology/Procedures: PROCEDURE: CT ABD PELV W/ IV CONTRST ONLY CT abdomen and pelvis with contrast: Reason for examination: Left lower quadrant pain. Comparison is made to previous study dated 06/04/2020. Helical images were obtained through the abdomen and pelvis with intravenous administration of 75 cc Omnipaque 300. Reconstruction was performed in sagittal and coronal planes. Exposure: One or more of the following individualized dose reduction techniques were utilized for this examination: 1. Automated exposure control 2. Adj ustment of the mA and/or kV according to patient size 3. Use of iterative reconstruction technique. The lung bases are clear. The heart size is normal with no pericardial effusion. No abnormality seen at the liver, spleen, adrenal glands or pancreas. The gallbladder is surgically absent. The abdominal aorta and inferior vena cava show no acute abnormalities. The kidneys show no renal masses, renal calculi, hydronephrosis or evidence of obstructive uropathy. The colon shows no diverticulosis, diverticulitis or colitis. There is moderate amount of fecal material in the colon however. No abnormality seen at the appendix. The small intestinal tract shows no abnormal dilatation, wall thickening or obstruction. The stomach shows no wall thickening or obstruction and no abnormality seen at the duodenum. No abnormality seen at the bladder. The uterus is surgically absent with no gross abnormality seen at the vaginal cuff. The left ovary however shows a 2.5 cm cystic-appearing lesion which appears to be slightly larger than on previous exam. The cystic lesion seen previously in the right ovary appears to be collapsed. No free fluid or free air is seen in the abdomen or pelvis. No acute bony abnormalities are seen. IMPRESSION: 2.5 cm cystic lesion in the left ovary. No other acute abnormality seen in the abdomen or pelvis. Electronically signed by: Carlotta Mobley MD (02/02/2021 7:26 PM) [facility] Course & Med Decision Making: Course & Med Decision Making Pertinent Labs and Imaging studies reviewed. (See chart for details) Patient presentation is similar to prior visits to the emergency department. Berta kumar has left lower quadrant tenderness that began 3 days ago. Although patient reported history of diverticulosis, none is seen on CT imaging. She also reports she has a left ovarian cyst, which is also seen on imaging. Constipation seen on imaging. Discussed findings of imaging with patient. She reports she would like to go home for comfort and self treatment. Patient advised to take stool softeners and utilize belly massage to encourage passage of fecal matter. She also may administer enema at home, which can be purchased [id number] if she needs it. Patient understands and is agreeable to discharge plan. Aman Disclaimer: Aman Disclaimer: This electronic medical record was generated, in whole or in part, using a voice recognition dictation system. Departure Departure Impression: Primary Impression: Constipation in female Additional Impression: Left ovarian cyst Disposition: HOME / SELF CARE / HOMELESS Condition: STABLE Referrals: NO PCP (PCP) Patient Instructions: Constipation, Adult, [id number] Additional Instructions: As discussed, your imaging today reveals a left-sided ovarian cyst and moderate constipation. You may take stool softeners by mouth as needed until you can pass a bowel movement. Additionally, massaging the belly can help encourage passage of stool. Enemas may be purchased at the pharmacy [id number] should these methods not work. Do not over-strain when attempting to pass stool, as this can lead to hemorrhoids, tearing or other bleeding. Please return to the emergency department if you are unable to pass stool, your pain worsens, you develop fever or have bloody stools. LIBBY MOBLEY Feb 02, 2021 17:56
[2021-02-02 17:57] LABS: BACTERIA,URINE FEW /HPF (0-FEW); RBC,URINE OCC /HPF (0-2); WBC,URINE OCC /HPF (0-4)
[2021-02-02] MEDS ORDERED: KETOROLAC 15 MG/ML VIAL. IVP ONE (18:15)
[2021-02-02] MEDS ORDERED: ONDANSETRON PF 4 MG/2 ML VIAL. IVP ONE (18:15)
[2021-02-02 18:26] LABS: CALCIUM 8.9 mg/dL (8.5-10.1); CREATININE 0.7 mg/dL (0.6-1.0); GFR 96.4; POTASSIUM 3.8 mmol/L (3.5-5.1)
[2021-02-02 18:32] LABS: ALBUMIN 3.7 g/dL (3.4-5.0); ALBUMIN/GLOBULIN RATIO 1.1 (1.0-1.7); TOTAL BILIRUBIN 0.2 mg/dL (0.2-1.0); TOTAL PROTEIN 7.2 g/dL (6.4-8.2)
[2021-02-02] MEDS ORDERED: KETOROLAC 30 MG/ML VIAL. IVP ONE (19:00)
[2021-02-02 19:03] LABS: BASO # 0.1 x10^3/uL (0.0-0.2); BASO % 1 % (0-3); EOS # 0.3 x10^3/uL (0.0-0.7); EOS % 3 % (0-3); HEMATOCRIT 41.4 % (36.0-47.0); HEMOGLOBIN 14.6 g/dL (12.0-15.5); LYMPH # 3.9 x10^3/uL (1.0-4.8); LYMPH % 38 % (24-48); MEAN CORPUSCULAR HEMOGLOBIN 32 pg (25-35); MEAN CORPUSCULAR HGB CONC 35 g/dL (31-37); MEAN CORPUSCULAR VOLUME 90 fL (79-100); MONO # 0.8 x10^3/uL (0.0-1.1); MONO % 7 % (0-9); NEUT # 5.2 x10^3/uL (1.8-7.7); NEUT % 51 % (31-73); PLATELET COUNT 234 x10^3/uL (140-400); RED BLOOD COUNT 4.61 x10^6/uL (3.50-5.40); RED CELL DISTRIBUTION WIDTH 12.6 % (11.5-14.5); WHITE BLOOD COUNT 10.2 x10^3/uL (4.0-11.0)
[2021-02-02] MEDS ORDERED: IOHEXOL 300 MG/ML 100ML VIAL. IV ONE (19:15)
[2021-02-02] MEDS ORDERED: CONTRAST GIVEN. MC PRN (19:15)
[2021-02-02 19:17] VITALS: BP 182/120
--- NOTE | 2021-02-02 19:29 | RAD ---
CT abdomen and pelvis with contrast: Reason for examination: Left lower quadrant pain. Comparison is made to previous study dated 06/04/2020. Helical images were obtained through the abdomen and pelvis with intravenous administration of 75 cc Omnipaque 300. Reconstruction was performed in sagittal and coronal planes. Exposure: One or more of the following individualized dose reduction techniques were utilized for thi s examination: 1. Automated exposure control 2. Adjustment of the mA and/or kV according to patient size 3. Use of iterative reconstruction technique. The lung bases are clear. The heart size is normal with no pericardial effusion. No abnormality seen at the liver, spleen, adrenal glands or pancreas. The gallbladder is surgically a bsent. The abdominal aorta and inferior vena cava show no acute abnormalities. The kidneys show no renal masses, renal calculi, hydronephrosis or evidence of obstructive uropathy. The colon shows no diverticulosis, diverticulitis or colitis. There is moderate amount of fecal mater ial in the colon however. No abnormality seen at the appendix. The small intestinal tract shows no ab normal dilatation, wall thickening or obstruction. The stomach shows no wall thickening or obstructio n and no abnormality seen at the duodenum. No abnormality seen at the bladder. The uterus is surgically absent with no gross abnormality seen at the vaginal cuff. The left ovary ho wever shows a 2.5 cm cystic-appearing lesion which appears to be slightly larger than on previous exa m. The cystic lesion seen previously in the right ovary appears to be collapsed. No free fluid or free air is seen in the abdomen or pelvis. No acute bony abnormalities are seen. IMPRESSION: 2.5 cm cystic lesion in the left ovary. No other acute abnormality seen in the abdomen or pelvis. Electronically signed by: Carlotta Mobley MD (02/02/2021 7:26 PM) [facility]
== END 2021-02-02 20:14 | disposition home or self-care (01) ==
LOC: ER 16:59
DX: N83.202 Unspecified ovarian cyst, left side (principal); K59.00 Constipation, unspecified; F17.200 Nicotine dependence, unspecified, uncomplicated; Z90.49 Acquired absence of other specified parts of digestive tract; Z90.710 Acquired absence of both cervix and uterus; Z88.0 Allergy status to penicillin
CPT/HCPCS: 36415; 74177; 80053; 81001; 83690; 85025; 96361; 96374; 96375; 99285; J1885; J2405; J7030; Q9967